=== PATIENT | female | born 1940 | race Caucasian/White ===

== ENCOUNTER → 2016-09-12 | Outpatient (REF) | payer MEDICARE ==
[~2016-09-12] MED LIST: CALCTAB93 PO; HYDR25TAB PO; MULTCAP PO; VITAMIN D PO
== END ==
LOC: M LAB REF 16:36
PROVIDERS: ATTEND Internal Medicine
DX: R68.2 Dry mouth, unspecified (principal); H04.129 Dry eye syndrome of unspecified lacrimal gland

== ENCOUNTER → 2016-09-18 | Outpatient (REF) | payer MEDICARE | LOC: M LAB REF 16:46 | PROVIDERS: ATTEND Nurse Practitioner Family | DX: J06.9 Acute upper respiratory infection, unspecified (principal) ==

== ENCOUNTER → 2016-09-24 | Outpatient (CLI) | payer MEDICARE ==
--- NOTE | 2016-09-24 15:40 | REP ---
Chest x-ray: Two views. History: Cough for over 1 week. Comparison study April 30, 2012. Findings: There is a linear opacity in the left base overlying the heart on the frontal view consistent with left lower lobe discoid atelectasis or fibrosis. It is not visible on the 2011 prior study. The lung kee are otherwise clear. Pleural angles are sharp. No infiltrate is seen. Heart is not enlarged. Pulmonary vasculature is not increased. The aorta is somewhat tortuous. There is a dextroconvex rotoscoliotic curve in the lumbar spine. Some degenerative disc changes are seen in the thoracic spine. Impression: Linear fibrosis versus plate-like atelectasis left base. Otherwise no acute disease. Lumbar scoliosis. Signed by Cody Barrios MD 09/24/2016 07:43 P
== END ==
LOC: M WUC 15:02
PROVIDERS: ATTEND Nurse Practitioner Family
DX: R05 Cough (principal); M41.9 Scoliosis, unspecified

== ENCOUNTER → 2020-09-21 | Outpatient (REF) | payer MEDICARE ==
[~2020-09-21] MED LIST changes: +HYDR-2541 PO; -HYDR25TAB PO
[2020-09-23 13:06] LABS: ANTINUCLEAR ANTIBODIES DIRECT Negative (Negative)
== END ==
LOC: M LAB REF 16:30
PROVIDERS: ATTEND Internal Medicine
DX: M35.00 Sjogren syndrome, unspecified (principal)

== ENCOUNTER → 2020-10-17 | Outpatient (CLI) | payer MEDICARE ==
--- NOTE | 2020-10-17 09:32 | REP ---
INDICATION: SWELLING, ATTENTION MID PALM THIRD DIGIT COMPARISON: None. TECHNIQUE: AP, lateral, bilateral oblique views left hand. FINDINGS: Age-related osteopenia and generalized age-related changes noted. No acute fracture or dislocation. Surrounding soft tissues are grossly unremarkable and without obvious mass lesion, subcutaneous emphysema, or foreign body. IMPRESSION: Generalized age-related changes. No obvious focal abnormality noted by radiographic evaluation.. <Electronically signed by Joaqumi Rollins > 10/17/20 0913
== END ==
LOC: M WUC 08:55
PROVIDERS: ATTEND Physician Assistant Medical
DX: M79.89 Other specified soft tissue disorders (principal)

== ENCOUNTER → 2021-10-06 | Outpatient (REF) | payer MEDICARE ==
[2021-10-07 13:06] LABS: SSA SJOGRENS A <0.2 AI (0.0-0.9); SSB SJOGRENS B <0.2 AI (0.0-0.9)
== END ==
LOC: M LAB REF 11:59
PROVIDERS: ATTEND Internal Medicine
DX: R68.2 Dry mouth, unspecified (principal); H25.011 Cortical age-related cataract, right eye

== ENCOUNTER → 2022-06-05 | Outpatient (CLI) | payer MEDICARE ==
[~2022-06-05] MED LIST changes: +LIDOCAINE 1% MDV 20ML VIAL As Ordered ONE; +methylPREDNISolone SUSP 40MG/ML 1ML VIAL (DEPO MEDROL) As Ordered ONE
== END ==
LOC: M IRPRO 13:39
PROVIDERS: ATTEND Physician Assistant Surgical
DX: M75.21 Bicipital tendinitis, right shoulder (principal)

== ENCOUNTER → 2022-06-21 | Outpatient (REF) | payer MEDICARE ==
[~2022-06-21] MED LIST changes: -LIDOCAINE 1% MDV 20ML VIAL As Ordered ONE; -methylPREDNISolone SUSP 40MG/ML 1ML VIAL (DEPO MEDROL) As Ordered ONE
[2022-06-21 14:58] LABS: FERRITIN 434.6 NG/ML (7.3-270.7)
[2022-06-21 15:01] LABS: PERCENT SATURATION 48.9 % (13.2-45.0)
== END ==
LOC: M LAB REF 12:36
PROVIDERS: ATTEND Internal Medicine
DX: Z01.818 Encounter for other preprocedural examination (principal); M17.9 Osteoarthritis of knee, unspecified; M25.569 Pain in unspecified knee

== ENCOUNTER → 2022-07-30 | Outpatient (CLI) | payer MEDICARE ==
[~2022-07-30] MED LIST changes: +ISOVUE-300 61% 50ML VIAL As Ordered ONE; +LIDOCAINE 1% MDV 20ML VIAL As Ordered ONE; +methylPREDNISolone SUSP 40MG/ML 1ML VIAL (DEPO MEDROL) As Ordered ONE
== END ==
LOC: M RAD 11:00
PROVIDERS: ATTEND Physician Assistant Surgical
DX: M19.011 Primary osteoarthritis, right shoulder (principal)
CPT/HCPCS: 20610; 76000; Q9967

== ENCOUNTER → 2022-08-30 | Outpatient (REF) | payer MEDICARE ==
[~2022-08-30] MED LIST changes: -ISOVUE-300 61% 50ML VIAL As Ordered ONE; -LIDOCAINE 1% MDV 20ML VIAL As Ordered ONE; -methylPREDNISolone SUSP 40MG/ML 1ML VIAL (DEPO MEDROL) As Ordered ONE
[2022-08-30 11:59] LABS: INR 0.97; PROTHROMBIN TIME 13.1 SECONDS (12.5-14.5)
[2022-08-30 12:00] LABS: PARTIAL THROMBOPLASTIN TIME 27.5 SECONDS (24.8-34.2)
== END ==
LOC: M LAB REF 11:23
PROVIDERS: ATTEND Internal Medicine
DX: Z01.818 Encounter for other preprocedural examination (principal)

== ENCOUNTER 2023-09-24 09:50 | Emergency (ER) | payer MEDICARE ==
[~2023-09-24] VITALS: Ht 149.9 cm; Wt 58.6 kg
[2023-09-24] MEDS ORDERED: OLME20TA50 (10:10)
[2023-09-24] MEDS ORDERED: SPIR-10 (10:10)
[2023-09-24 15:01] VITALS: BP 149/70; TEMP 97.9; O2SAT 100
== END 2023-09-24 15:04 | disposition home or self-care (01) ==
LOC: M ED 09:50
DX: S05.11XA Contusion of eyeball and orbital tissues, right eye, initial encounter (principal); S00.03XA Contusion of scalp, initial encounter; W19.XXXA Unspecified fall, initial encounter; Y92.009 Unspecified place in unspecified non-institutional (private) residence as the place of occurrence of the external cause; Y93.9 Activity, unspecified; Y99.9 Unspecified external cause status; M48.02 Spinal stenosis, cervical region; I10 Essential (primary) hypertension; Z96.651 Presence of right artificial knee joint; Z79.899 Other long term (current) drug therapy; Z88.5 Allergy status to narcotic agent; Z88.8 Allergy status to other drugs, medicaments and biological substances

== ENCOUNTER 2024-06-22 08:12 | Day surgery (SDC) | payer MEDICARE ==
[~2024-06-22] VITALS: Ht 154.9 cm; Wt 57.6 kg
[~2024-06-22 08:12] MED LIST changes: +CALC500C16 PO; +CIDA500T2 PO; +HYDR-3490 PO; +OLME20TA50 PO; +SPIR-10 PO; +THERTAB52 PO; +VITA100093 PO
[2024-06-22] MEDS ORDERED: propofoL 200 MG/20 ML VIAL As Ordered ONE (08:54)
[2024-06-22 09:17] VITALS: TEMP 96.5
[2024-06-22 09:35] VITALS: BP 121/58; O2SAT 98
== END 2024-06-22 09:41 | disposition home or self-care (01) ==
LOC: M OPP 08:12
PROVIDERS: ATTEND Internal Medicine Gastroenterology
DX: K62.5 Hemorrhage of anus and rectum (principal); K64.0 First degree hemorrhoids; K57.30 Diverticulosis of large intestine without perforation or abscess without bleeding; I10 Essential (primary) hypertension; M19.90 Unspecified osteoarthritis, unspecified site; Z88.5 Allergy status to narcotic agent; Z88.6 Allergy status to analgesic agent; Z79.899 Other long term (current) drug therapy

== ENCOUNTER → 2024-09-09 | Outpatient (CLI) | payer MEDICARE ==
[~2024-09-09] MED LIST changes: +ISOVUE-300 61% 100ML VIAL As Ordered ONE; +LIDOCAINE 1% MDV 20ML VIAL As Ordered ONE; +methylPREDNISolone SUSP 40MG/ML 1ML VIAL (DEPO MEDROL) As Ordered ONE
== END ==
LOC: M RAD 15:01
PROVIDERS: ATTEND Physician Assistant Surgical
DX: M19.011 Primary osteoarthritis, right shoulder (principal); M75.41 Impingement syndrome of right shoulder
CPT/HCPCS: 20610; 77002; J1010; Q9967

== ENCOUNTER 2025-07-01 11:42 | Emergency (ER) | payer MEDICARE ==
[~2025-07-01] VITALS: Ht 149.9 cm; Wt 55.5 kg
[~2025-07-01 11:42] MED LIST changes: -ISOVUE-300 61% 100ML VIAL As Ordered ONE; -LIDOCAINE 1% MDV 20ML VIAL As Ordered ONE; -methylPREDNISolone SUSP 40MG/ML 1ML VIAL (DEPO MEDROL) As Ordered ONE
[2025-07-01 14:50] VITALS: BP 178/74; TEMP 98.1; O2SAT 98
== END 2025-07-01 14:56 | disposition home or self-care (01) ==
LOC: M ED 11:42
DX: S06.0X0A Concussion without loss of consciousness, initial encounter (principal); W01.10XA Fall on same level from slipping, tripping and stumbling with subsequent striking against unspecified object, initial encounter; Y92.009 Unspecified place in unspecified non-institutional (private) residence as the place of occurrence of the external cause; Y93.9 Activity, unspecified; Y99.9 Unspecified external cause status; I10 Essential (primary) hypertension; Z96.651 Presence of right artificial knee joint; M25.78 Osteophyte, vertebrae; M50.31 Other cervical disc degeneration, high cervical region; M85.88 Other specified disorders of bone density and structure, other site; Z79.899 Other long term (current) drug therapy; Z88.5 Allergy status to narcotic agent; Z88.8 Allergy status to other drugs, medicaments and biological substances